=== PATIENT | female | born 1970 | race Caucasian/White ===

== ENCOUNTER 2017-06-10 15:57 | Emergency (ER) | payer OTHER ==
[2017-06-10] MEDS ORDERED: NITROGLYCERIN 0.4 MG TAB SL PRN (16:05)
[2017-06-10] MEDS ORDERED: ASPIRIN 81 MG CHEWABLE CTB ONE (16:06)
[2017-06-10] MEDS ORDERED: NITROGLYCERIN 0.4 MG TAB SL ONE (16:07)
[2017-06-10] MEDS: ASPIRIN 81 MG CHEWABLE CTB PO STA (16:07)
[2017-06-10] MEDS: SODIUM CHLORIDE 0.9% FLUSH 10 ML SOL IV PRN (16:16)
[2017-06-10 16:20] VITALS: TEMP 98.1
[2017-06-10 16:21] LABS: BASOPHILS % (AUTO) 1 % (0-3); EOSINOPHILS % (AUTO) 2 % (0-9); HEMATOCRIT 38 % (35-47); HEMOGLOBIN 12.2 gm/dl (12.0-15.5); LYMPHOCYTES % (AUTO) 29.3 % (10-50); MEAN CORPUSCULAR HEMOGLOBIN 24.7 pg (27.0-32.0); MEAN CORPUSCULAR HGB CONC 32.2 gm/dl (32.0-36.0); MONOCYTES % (AUTO) 7.7 % (0-12); NEUTROPHILS % (AUTO) 60.4 % (37-80)
[2017-06-10 16:30] LABS: INR 1.03 (0.86-1.12)
[2017-06-10 16:35] LABS: BLOOD UREA NITROGEN 14 mg/dl (7-18); CALCIUM 8.5 mg/dl (8.5-10.1); CARBON DIOXIDE 24.4 mEq/L (21-32); CHLORIDE 101 mMol/L (98-107); CREATINE KINASE 156 U/L (26-192); GLOM FILT RATE 67 mL/min (>60); GLUCOSE 124 mg/dl (74-106); POTASSIUM 3.5 mMol/L (3.5-5.1); SODIUM 135 mMol/L (136-145); TROP I < 0.017 ng/ml (0.000-0.056)
[2017-06-10 16:36] LABS: MEAN CORPUSCULAR VOLUME 77 fL (81-99)
[2017-06-10 17:15] VITALS: BP 124/67; PULSE 76; RESP 17; O2SAT 98
[2017-06-10 17:18] LABS: ANISOCYTOSIS SLIGHT AMT
== END 2017-06-10 17:07 | disposition home or self-care (01) ==
LOC: ED 15:57
DX: R07.89 Other chest pain (principal); E78.00 Pure hypercholesterolemia, unspecified
CPT/HCPCS: 71045; 80048; 82550; 84484; 85025; 85610; 85730; 93005; 99283; 99284; A9270-GY

== ENCOUNTER 2018-05-13 23:11 | Emergency (ER) | payer OTHER ==
[2018-05-13 23:11] VITALS: O2SAT 98
[2018-05-13] MEDS ORDERED: ASPIRIN 81 MG CHEWABLE CTB ONE (23:18)
[2018-05-13] MEDS ORDERED: SODIUM CHLORIDE 0.9% FLUSH 10 ML SOL IV PRN (23:27)
[2018-05-13] MEDS ORDERED: ASPIRIN 81 MG CHEWABLE CTB PO STA (23:27)
[2018-05-13 23:44] LABS: BASOPHILS % (AUTO) 1 % (0-3); EOSINOPHILS % (AUTO) 2 % (0-9); HEMATOCRIT 37 % (35-47); HEMOGLOBIN 11.5 gm/dl (12.0-15.5); LYMPHOCYTES % (AUTO) 42.4 % (10-50); MEAN CORPUSCULAR HEMOGLOBIN 23.7 pg (27.0-32.0); MEAN CORPUSCULAR HGB CONC 31.2 gm/dl (32.0-36.0); MONOCYTES % (AUTO) 9.2 % (0-12); NEUTROPHILS % (AUTO) 45.8 % (37-80)
[2018-05-14] LABS: BLOOD UREA NITROGEN 23 mg/dl (7-18); CALCIUM 8.8 mg/dl (8.5-10.1); CHLORIDE 106 mMol/L (98-107); CREATINE KINASE 68 U/L (26-192); CREATININE 1.01 mg/dl (0.60-1.00); GLUCOSE 107 mg/dl (74-106); MEAN CORPUSCULAR VOLUME 76 fL (81-99); SODIUM 143 mMol/L (136-145); TROP I < 0.017 ng/ml (0.000-0.056)
[2018-05-14 01:56] VITALS: BP 122/78; PULSE 74; RESP 20
[2018-05-14 02:20] VITALS: TEMP 97.3
== END 2018-05-14 02:05 | disposition home or self-care (01) | DRG 313 ==
LOC: ED 23:11
DX: R07.89 Other chest pain (principal)
CPT/HCPCS: 36415; 71045; 80048; 82550; 84484; 85025; 85610; 85730; 93005; 99283; 99285